=== PATIENT | female | born 2000 | race Caucasian/White ===

== ENCOUNTER 2021-12-18 03:11 | Observation (INO) ==
[2021-12-18 04:03] LABS: Basophils # 0.1 K/mcL (0.0-0.2); Basophils % 0.7 %; Eosinophils # 0.3 K/mcL (0.0-0.6); Eosinophils % 3.1 %; Hematocrit 39.8 % (35.3-44.9); Hemoglobin 13.4 g/dL (11.5-15.4); Immature Granulocytes % 0.4 % (0-4); Lymphocytes # 4.9 K/mcL (0.6-4.6); Lymphocytes % 46.8 %; Mean Corpuscular HGB Conc 33.7 g/dL (31.6-35.5); Mean Corpuscular Hemoglobin 30.7 pg (28.0-33.3); Mean Corpuscular Volume 91.3 fL (83.0-100.0); Mean Platelet Volume 10.4 fL (9.4-12.4); Monocytes # 0.7 K/mcL (0.0-1.3); Monocytes % 6.9 %; Neutrophils # 4.4 K/mcL (1.6-8.9); Platelet Count 274 K/mcL (140-400); Red Blood Count 4.36 M/mcL (3.82-4.97); Red Cell Distribution Width 12.9 % (11.5-14.5); Segmented Neutrophils % 42.1 %; White Blood Count 10.5 K/mcL (4.3-11.1)
[2021-12-18 04:17] LABS: Acetaminophen 25 mcg/mL (10-20); BUN/Creatinine Ratio 11 (6-26); Blood Urea Nitrogen 8 mg/dL (6-20); Carbon Dioxide 27 mEq/L (23-29); Chloride 107 mEq/L (98-107); Chol/HDL Ratio 3.5 (0-4.9); Cholesterol 181 mg/dL (< 200); Ethanol < 10 mg/dL (Less than 10); Glucose 98 mg/dL (70-105); HDL Cholesterol 51 mg/dL (40-59); LDL Cholesterol,Calculated 96 mg/dL (< 100); Osmolality,Calculated 292 (280-300); Potassium 3.5 mEq/L (3.5-5.1); Salicylate < 2.5 mg/dL (15.0-30.0); Sodium 142 mEq/L (136-145); Triglycerides 170 mg/dL (< 150); eGFR For African Americans > 60 (> 60); eGFR For Non-African Americans > 60 (> 60)
[2021-12-18 04:20] LABS: Estimated Average Glucose 108 mg/dl; Hemoglobin A1C 5.4 %
[2021-12-18] MEDS ORDERED: Ondansetron ODT 4 MG TAB.RAPDIS SL ONE (04:30)
[2021-12-18 04:42] LABS: Bacteria,Urine Few per hpf (None-Few); Bilirubin,Urine Negative (Negative); Blood,Urine Negative (Negative); Calcium Oxalate Crystals,Urine Present per hpf; Clarity,Urine Clear (Clear); Color,Urine Yellow (Yellow); Glucose,Urine (UA) Normal (Normal); Ketones,Urine Trace mg/dL (Negative); Leukocyte Esterase,Urine Negative (Negative); Mucus,Urine Few per lpf (None-Few); Nitrite,Urine Negative (Negative); PH,Urine 6.5 pH Units (5.0-8.0); Protein,Urine 100 mg/dL (Neg-Trace); Specific Gravity,Urine > 1.030 (1.010-1.025); Squamous Epithelial Cell,Urine Few per hpf (None-Few)
[2021-12-18 04:43] LABS: Amphetamine Screen,Urine Negative ng/mL (Cutoff=1000); Barbiturate Screen,Urine Negative ng/mL (Cutoff=200); Benzodiazepines Screen,Urine Negative ng/mL (Cutoff=200); Cannabinoid Screen,Urine Negative ng/mL (Cutoff = 50); Cocaine Screen,Urine Negative ng/mL (Cutoff= 300); Opiate Screen,Urine Negative ng/mL (Cutoff=300); Phencyclidine Screen,Urine Negative ng/mL (Cutoff=25)
[2021-12-18] MEDS ORDERED: Ibuprofen 400 MG TABLET PO PRN (09:42)
[2021-12-18] MEDS ORDERED: *HR* LORazepam 2 MG/ML VIAL IM PRN (09:42)
[2021-12-18] MEDS ORDERED: *HR* LORazepam 1 MG TABLET PO PRN (09:42)
[2021-12-18] MEDS ORDERED: Mag Hydrox/Al Hydrox/Simeth 30 ML UDC PO PRN (09:42)
[2021-12-18] MEDS ORDERED: Nicotine 2 MG GUM BC PRN (09:42)
[2021-12-18] MEDS ORDERED: MOM Conc 10 ML UD.LIQ PO PRN (09:42)
[2021-12-18] MEDS ORDERED: QUEtiapine Fumarate 25 MG TABLET PO PRN (09:42)
[2021-12-18 10:40] LABS: Influenza A PCR Negative (Negative); Influenza B PCR Negative (Negative); Resp. Syncytial Virus PCR Negative (Negative)
[2021-12-18 10:42] LABS: SARS-CoV-2 by PCR (In House) Negative (Negative)
[2021-12-18] MEDS: hydrOXYzine pamoate 25 MG CAPSULE PO PRN (16:05)
[2021-12-18] MEDS: Ondansetron ODT 4 MG TAB.RAPDIS SL PRN (16:06)
[2021-12-18] MEDS: Nicotine 21 MG PATCH.TD24 TD SCH (16:06)
[2021-12-18 20:44] VITALS: O2SAT 99
[2021-12-19] MEDS ORDERED: Nicotine 21 MG PATCH.TD24 TD SCH (09:00)
[2021-12-19] MEDS: Nicotine 21 MG PATCH.TD24 TD SCH (09:09)
[2021-12-19] MEDS: Ondansetron ODT 4 MG TAB.RAPDIS SL PRN (09:11)
[2021-12-19 10:35] VITALS: BP 103/70; PULSE 63; TEMP 98.2
[2021-12-19] MEDS: hydrOXYzine pamoate 25 MG CAPSULE PO PRN (11:24)
== END 2021-12-19 15:30 | disposition home or self-care (01) ==
LOC: EMEROOARM 03:11 → INTOOBSV 11:59 → 1ANU 11:59
PROVIDERS: ADMIT Psychiatry & Neurology Forensic Psychiatry; ATTEND Psychiatry & Neurology Forensic Psychiatry